=== PATIENT | female | born 1995 | race Caucasian/White ===

== ENCOUNTER 2023-10-21 04:32 | Emergency (ER) | payer SELFPAY ==
[2023-10-21] VITALS (22 sets, daily range): BP systolic 102–142; BP diastolic 74–89; PULSE 98–120; TEMP 36.8; O2SAT 93–100; BMI 30.3
[2023-10-21] MEDS: 0.9 % SODIUM CHLORIDE 1,000 ML 1000 ML IV (04:48)
[2023-10-21] MEDS: ONDANSETRON PF 4 MG/2 ML VIAL IV (04:50)
--- NOTE | 2023-10-21 04:56 | ED_ITS ---
HPI HPI - Overdose General Chief Complaint: Overdose Stated Complaint: POSS OVERDOSE Time Seen by Provider: 10/21/23 04:35 Source: patient and other Source comment: ems Mode of arrival: ambulance History of Present Illness HPI Narrative: 28-year-old female with a history of heroin use who states she has been clean after going cold turkey 6 months ago is brought to the emergency department from home after she accidentally overdosed. She states she has not used anything in 6 months and got some heroin earlier today. She has also been using marijuana. EMS was called and she was found unresponsive and was given 4 mg of intranasal Narcan with clinical improvement. Upon arrival she is irritable but arousable and appropriate. She denies the possibility of . She denies this was a suicide attempt. She lives with her boyfriend and her boyfriend's parents property. According to EMS she was found in an apartment over a garage that was under construction. Upon arrival she was nauseated and had an episode of vomiting. She then complained that she was extremely thirsty and was given ice chips and clear water to drink. MD complaint: Reports accidental overdose Related Data Allergies Allergy/AdvReac Type Severity Reaction Status Date / Time No Known Drug Allergies Allergy Verified 10/21/23 04:37 Opioid HPI Opioid Management Most Recent Opioid Data: No Data to Display Review of Systems ROS Status of ROS 10 or more systems reviewed and unremark able except as noted in history and below [facility] Medical History (Updated 10/21/23 @ 06:39 by Juno Hong MD) FHx: cholecystectomy ?Z83.79 - Family history of other diseases of the digestive system (ICD-10) Exam Narrative Exam Narrative: Vital signs and Nursing Notes reviewed: She is afebrile with a normal blood pressure, pulse is elevated at 120, she is not hypoxic with pulse ox of 99% on room air General: Thin nontoxic female resting comfortably on the stretcher, she is sleeping and easily arousable, no respiratory distress HEENT: Normocephalic atraumatic, mucous membranes are moist and pink, eyes are clear, normal conjunctiva, vision is grossly intact, no scleral icterus Neck: Supple, no meningeal signs, no anterior or posterior cervical lymphadenopathy Chest: Lungs are clear to auscultation with good air entry, there is no wheezing rhonchi or rales appreciated no accessory muscle use, patient is speaking in complete sentences-no chest wall tenderness to palpation CVS: Regular rate and rhythm S1-S2, no murmurs rubs or gallops, pulses are brisk and equal bilaterally ABD: Soft, nondistended, nontender with a large scar in the right upper quadrant status postcholecystectomy no rebound guarding or rigidity, bowel sounds are normal, no pulsatile masses appreciated Extremities: Moving all extremities, no lower extremity tenderness or swelling noted, negative Homans' sign, pulses are brisk and equal bilaterally Skin: Normal in appearance without rash,pallor, petechiae or purpura, needle track street noted on the patient's extremities Neuro: No focal deficits Constitutional Vital Signs, click to edit/add: Last Vital Signs Temp 98.2 F 10/21/23 04:38 Pulse 107 H 10/21/23 05:20 Resp 15 10/21/23 05:20 BP 106/77 10/21/23 05:15 Pulse Ox 97 10/21/23 05:20 O2 Del Method Nasal Cannula 10/21/23 04:38 O2 Flow Rate 3 10/21/23 04:38 Course Vital Signs Vital signs: Vital Signs Blood Pressure 119/79 10/21/23 04:32 Temperature 98.2 F 10/21/23 04:38 Pulse Rate 107 H 10/21/23 05:20 Respiratory Rate 15 10/21/23 05:20 Blood Pressure 106/77 10/21/23 05:15 Pulse Oximetry 97 10/21/23 05:20 Oxygen Delivery Method Nasal Cannula 10/21/23 04:38 Oxygen Delivery Flow Rate 3 10/21/23 04:38 MDM - Overdose MDM Narrative Medical decision making narrative: This 28-year-old female with a history of substance abuse/heroin and use is brought to the emergency department by EMS from home after she overdosed on heroin earlier in the evening. She has been staying with her boyfriend. She states she has been clean from heroin for 6 months. Her birthday was yesterday and allegedly she wanted to democrat for her birthday. She was given 4 mg of Narcan prior to arrival by EMS with clinical improvement. She was also found to have marijuana with her. Upon arrival she was sleepy but arousable and appropriate. She denied this is an intentional overdose. She was initially tachycardic. EKG upon arrival was a sinus tachycardia at 114 bpm. Routine labs are ordered and are reviewed. She has an elevated white count of 24.6. There is no sign of active infection. This is likely an acute phase reactant from overdosing and demargination of white blood cells. Electrolytes are noted to be normal with the exception of a mildly elevated creatinine at 1.35. She was medicated with IV fluids and Zofran after an episode of vomiting in the emergency department. She has been drinking clear liquids and has not had any episodes of hypoxia or return to a level of decreased responsiveness. After 2 hours in the emergency department I deemed her safe to be discharged home and she called for a ride. She states that she is going to discontinue using heroin again and go cold turkey as she did 6 months ago. I offered her prescription for Narcan and she is in agreement with taking this prescription. She was given resources for local rehab and detox facilities. Lab Data Attestation: I reviewed the patient's lab results. Lab results narrative: The [address] [address] XRay Report Signed Patient: MALDONADO SHERWOOD MR#: [id number] : 1995 Acct:[id number] Age/Sex: 28 / F ADM Date: 10/21/23 Loc: ER Attending Dr: Ordering Physician: Juno Hong Date of Service: 10/21/23 Procedure(s): XR chest 1V Accession Number(s): [id number] cc: Juno Hong; Physician,Non-Staff M.D.~ The [address] [address] Patient Name: MALDONADO SHERWOOD MRN: [id number] date: 1995 Sex: F Assigned Patient Location: ER Current Patient Location: ER Accession/Order Number: [id number] Exam Date: 10/21/2023 05:07 Report Date: 10/21/2023 05:28 At the request of: JUNO HONG Procedure: XR chest 1V EXAM: XR chest 1V HISTORY: Overdose. COMPARISON: None. TECHNIQUE: AP erect portable chest radiograph performed. FINDINGS: The trachea is unremarkable. The cardiomediastinal silhouette and hilar shadows are unremarkable. The lung volumes are normal. There is no consolidation, pleural effusion or pulmonary vascular congestion. There is no pneumothorax or osseous abnormality. XR/XR chest 1V IMPRESSION: Unremarkable AP erect portable chest radiograph. Electronically authenticated by: PITO CLANCY Date: 10/21/2023 05:28 Labs: Lab Results 10/21/23 Range/Units 04:50 WBC 24.6 H (4.0-11.0) 10^3/uL RBC 4.80 (4.20-5.40) 10^6/uL Hgb 14.8 (12.0-16.0) g/dL Hct 46.1 (36.0-48.0) % MCV 96.0 (81.0-99.0) fL MCH 30.8 (26.7-34.0) pg MCHC 32.1 (29.9-35.2) g/dL RDW 12.2 (11.0-15.0) % Plt Count 506 H (150-450) 10^3/uL MPV 9.8 (9.5-13.5) fL Seg Neuts % (Manual) 79.0 Band Neutrophils % 9.0 H (0-5) % Lymphocytes % (Manual) 6.0 L (20.5-60.0) % Atypical Lymphs % (Man) 1.0 % Monocytes % (Manual) 4.0 (1.7-12.0) % Eosinophils % (Manual) 1.0 (0.9-7.0) % Basophils % (Manual) 0.0 L (0.2-2.0) % Neutrophils # (Manual) 19.43 H (1.4-6.5) 10^3/uL Band Neutrophils # 2.2 H (0.0-0.3) 10^3/uL Lymphocytes # (Manual) 1.47 (1.20-3.80) 10^3/uL Abs Atypical Lymphs Man 0.24 Monocytes # (Manual) 0.98 H (0.30-0.80) 10^3/uL Eosinophils # (Manual) 0.24 (0.00-0.70) 10^3/uL Basophils # (Manual) 0.00 (0.00-0.10) 10^3/uL Sodium 142 (136-145) mmol/L Potassium 4.5 (3.5-5.1) mmol/L Chloride 103 (98-107) mmol/L Carbon Dioxide 19.3 L (21.0-32.0) mmol/L Anion Gap 24.2 BUN 14.0 (7.0-18.0) mg/dL Creatinine 1.35 H (0.55-1.02) mg/dL Est GFR ( Amer) 57 L (>=60) Est GFR (Non-Af Amer) 47 L (>=60) BUN/Creatinine Ratio 10.4 Glucose 89 (74-106) mg/dL Calcium 9.3 (8.5-10.1) mg/dL Serum HCG, Qual Negative (NEGATIVE) ECG Data Attestation: I personally reviewed and interpreted this ECG as follows: (Sinus tachycardia at 114 bpm, normal axis, normal intervals, no acute ST segment elevation or T wave inversion) Discharge Plan Discharge Stand Alone Forms: Portal Instructions Chief Complaint: Overdose Clinical Impression: Leukocytosis, unspecified, Opiate or related narcotic overdose Patient Disposition: Home, Self-Care Time of Disposition Decision: 06:38 Condition: Good Print Language: Venezuelan Instructions: Opioid Withdrawal (ED), Opioid Use Disorder (ED) Referrals: Physician,Non-Staff, MD [Primary Care Provider] - 1 week
--- NOTE | 2023-10-21 04:58 | XR_ITS ---
The [address] [address] Patient Name: MALDONADO SHERWOOD MRN: [id number] date: 1995 Sex: F Assigned Patient Location: ER Current Patient Location: ER Accession/Order Number: [id number] Exam Date: 10/21/2023 05:07 Report Date: 10/21/2023 05:28 At the request of: JUNO MARKER Procedure: XR chest 1V EXAM: XR chest 1V HISTORY: Overdose. COMPARISON: None. TECHNIQUE: AP erect portable chest radiograph performed. FINDINGS: The trachea is unremarkable. The cardiomediastinal silhouette and hilar shadows are unremarkable. The lung volumes are normal. There is no consolidation, pleural effusion or pulmonary vascular congestion. There is no pneumothorax or osseous abnormality. XR/XR chest 1V IMPRESSION: Unremarkable AP erect portable chest radiograph. Electronically authenticated by: PITO CLANCY Date: 10/21/2023 05:28
--- NOTE | 2023-10-21 05:07 | ECG_ITS ---
The [facility] Test Date: 2023-10-21 Pat Name: MALDONADO SHERWOOD Department: Room: - Gender: Female Binding Printer: : 1995 Requested By: [id number] Order Number: [id number] Reading MD: MAICO JAIN Measurements Intervals Lyons Rate: 114 P: 67 DE: 140 QRS: 58 QRSD: 76 T: 38 QT: 318 QTc: 385 Interpretive Statements 1120 Sinus tachycardia 9140 abnormal rhythm ECG No previous ECG available for comparison Electronically Signed On 10-21-2023 19:27:57 EDT by MAICO JAIN
[2023-10-21 05:08] LABS: Hematocrit 46.1 % (36.0-48.0); Hemoglobin 14.8 g/dL (12.0-16.0); Mean Corpuscular HGB Conc 32.1 g/dL (29.9-35.2); Mean Corpuscular Hemoglobin 30.8 pg (26.7-34.0); Mean Platelet Volume 9.8 fL (9.5-13.5); Platelet Count 506 10^3/uL (150-450); Red Cell Distribution Width 12.2 % (11.0-15.0); White Blood Count 24.6 10^3/uL (4.0-11.0)
[2023-10-21 05:13] LABS: Anion Gap 24.2; BUN Creatinine Ratio 10.4; Calcium 9.3 mg/dL (8.5-10.1); Carbon Dioxide 19.3 mmol/L (21.0-32.0); Chloride 103 mmol/L (98-107); Estimated GFR (African America 57 (>=60); Estimated GFR (Non-African Ame 47 (>=60); Glucose 89 mg/dL (74-106); Potassium 4.5 mmol/L (3.5-5.1); Sodium 142 mmol/L (136-145)
[2023-10-21 05:28] LABS: HCG Qualitative NEGATIVE (NEGATIVE)
[2023-10-21 05:45] LABS: Atypical Lymphocytes Abs Man 0.24; Band Neutrophils Absolute 2.2 10^3/uL (0.0-0.3); Eosinophils Absolute Manual 0.24 10^3/uL (0.00-0.70); Lymphocytes Absolute Manual 1.47 10^3/uL (1.20-3.80); Monocytes Absolute Manual 0.98 10^3/uL (0.30-0.80); Segmented Neut Absolute Manual 19.43 10^3/uL (1.4-6.5)
== END 2023-10-21 10:10 | disposition home or self-care (01) ==
PROVIDERS: Emergency Provider Emergency Medicine
DX: T40.601A Poisoning by unspecified narcotics, accidental (unintentional), initial encounter (principal); D72.829 Elevated white blood cell count, unspecified; F12.90 Cannabis use, unspecified, uncomplicated
CPT/HCPCS: 36415; 71045; 80048; 84703; 85007; 85027; 93005; 96361; 96374; 99285